=== PATIENT | male | born 1940 | race Caucasian/White ===

== ENCOUNTER → 2019-06-21 | Outpatient (CLI) | payer MEDICARE | END | disposition home or self-care (01) | LOC: CFH 09:36 | PROVIDERS: ATTEND Internal Medicine Cardiovascular Disease | DX: I08.3 Combined rheumatic disorders of mitral, aortic and tricuspid valves (principal); I27.20 Pulmonary hypertension, unspecified; I10 Essential (primary) hypertension; R60.0 Localized edema | CPT/HCPCS: 0399T; 93306 ==

== ENCOUNTER → 2020-09-25 | Outpatient (CLI) | payer MEDICARE | END | disposition home or self-care (01) | LOC: CFH 09:56 | PROVIDERS: ATTEND Internal Medicine Cardiovascular Disease | DX: I08.3 Combined rheumatic disorders of mitral, aortic and tricuspid valves (principal); I11.9 Hypertensive heart disease without heart failure | CPT/HCPCS: 93306 ==

== ENCOUNTER → 2020-11-05 | Outpatient (CLI) | payer MEDICARE ==
[~2020-11-05] MED LIST: AMLO-150 PO; CHOL10003 PO; ENAL10TA9 PO; FURO20TA3 PO; IRON18TA PO; KYOLIC GARLIC PO; LACT1CAP37 PO; LEVO50TA5 PO
[2020-11-05 11:36] LABS: ALANINE AMINOTRANSFERASE 19 U/L (12-78); ALBUMIN 3.9 g/dL (3.4-5.0); ANION GAP 5 mmol/L (5-15); CHLORIDE 106 mmol/L (98-107); CREATININE 1.61 mg/dL (0.7-1.3)
[2020-11-05 11:38] LABS: ALKALINE PHOSPHATASE 91 U/L (45-117); BILIRUBIN,TOTAL 0.7 mg/dL (0.2-1.0); TOTAL PROTEIN 7.6 g/dL (6.4-8.2)
== END | disposition home or self-care (01) ==
LOC: STAR 10:15
PROVIDERS: ATTEND Surgery
DX: Z01.812 Encounter for preprocedural laboratory examination (principal); Z20.822 Contact with and (suspected) exposure to COVID-19; I48.91 Unspecified atrial fibrillation; I25.2 Old myocardial infarction
CPT/HCPCS: 36415; 80053; 93005; U0003

== ENCOUNTER 2020-11-11 08:01 | Observation (INO) | payer MEDICARE ==
[~2020-11-11] VITALS: Ht 177.8 cm; Wt 73.5 kg
[~2020-11-11 08:01] MED LIST changes: -LACT1CAP37 PO; +LACT1CAP47 PO
[2020-11-11] MEDS ORDERED: CHLORHEXIDINE 15 ML UDC PO ONE (08:30)
[2020-11-11] MEDS ORDERED: LACTATED RINGERS 1,000 ML IV SCH (08:30)
[2020-11-11] MEDS ORDERED: PSYL3.4P5 PO (08:31)
[2020-11-11 08:34] VITALS: BP 162/81
[2020-11-11] MEDS ORDERED: FENTANYL PF 250 MCG/5ML ONE (10:19)
[2020-11-11] MEDS ORDERED: BUPIVACAINE/PF 0.5% ONE (11:02)
[2020-11-11] MEDS ORDERED: EPINEPHRINE 1 MG/ML, 1ML ONE (11:02)
[2020-11-11] MEDS ORDERED: DEXAMETHASONE 4 MG/ML, 1ML ONE (11:10)
[2020-11-11] MEDS ORDERED: PHENYLEPHRINE 10 MG/ML ONE (11:10)
[2020-11-11] MEDS ORDERED: HYDROmorphone 1 MG/ML, 1ML INJ IVPush PRN (12:30)
[2020-11-11] MEDS ORDERED: hydrALAzine 20 MG/ML, 1ML IV PRN (12:30)
[2020-11-11] MEDS ORDERED: PROMETHAZINE 25 MG/ML, 1ML IVPush PRN (12:30)
[2020-11-11] MEDS ORDERED: ALBUTEROL SULFATE 2.5 MG/3 ML NPPB PRN (12:30)
[2020-11-11] MEDS ORDERED: DIAZEPAM 5 MG/ML, 2ML IVPush PRN (12:30)
[2020-11-11] MEDS ORDERED: LABETALOL 5MG/ML, 20ML IV PRN (12:30)
[2020-11-11] MEDS ORDERED: PROPOFOL 10 MG/ML, 20ML ONE (13:55)
[2020-11-11] MEDS ORDERED: GLYCOPYRROLATE 0.2MG/1ML, 5ML ONE (13:55)
[2020-11-11] MEDS ORDERED: ROCURONIUM 10MG/ML,5ML ONE (13:55)
[2020-11-11] MEDS ORDERED: NEOSTIGMINE 1 MG/ML, 10ML ONE (13:55)
[2020-11-11] MEDS ORDERED: ONDANSETRON 2MG/ML, 2ML ONE (13:55)
[2020-11-11] MEDS ORDERED: CEFAZOLIN 1,000 MG ONE (13:55)
[2020-11-11] MEDS ORDERED: FENTANYL PF 100 MCG/2ML ONE (14:07)
[2020-11-11] MEDS: FENTANYL PF 100 MCG/2ML IV PRN ×4 (14:14→14:49)
[2020-11-11] MEDS ORDERED: LACTATED RINGERS 500 ML IVBOLUS PRN (14:30)
[2020-11-11] MEDS ORDERED: ONDANSETRON 2MG/ML, 2ML IVPush PRN (14:30)
[2020-11-11] MEDS ORDERED: MORPHINE SULFATE 4 MG/ML, 1ML IVPush PRN (14:30)
[2020-11-11] MEDS: LABETALOL 5MG/ML, 20ML IVPush SCH ×2 (14:30→22:30)
[2020-11-11] MEDS ORDERED: ACETAMINOPHEN 100 ML IVPB ONE ×2 (14:30)
[2020-11-11] MEDS ORDERED: OXYcodone 5 MG/5 ML ORAL.SOL UDC PO PRN (15:00)
[2020-11-11] MEDS ORDERED: OXYcodone 5 MG/5 ML ORAL.SOL UDC ONE (15:03)
[2020-11-11 16:05] VITALS: BP 123/75
[2020-11-11] MEDS: POTASSIUM CHLORIDE 20 MEQ in D5%-0.45% NACL 1,000 ML IV SCH (17:19)
[2020-11-11 19:32] VITALS: BP 129/71
[2020-11-11 23:43] VITALS: BP 140/84
[2020-11-12 04:00] VITALS: BP 143/85
[2020-11-12 05:33] LABS: BASOPHILS % (AUTO) 0 % (0-1); EOSINOPHILS % (AUTO) 0 % (1-7); LYMPHOCYTES % (AUTO) 3 % (22-44); MEAN CORPUSCULAR HEMOGLOBIN 30.1 pg (27.5-34.5); MEAN CORPUSCULAR HGB CONC 33.8 g/dL (33.2-36.2); MEAN PLATELET VOLUME 6.9 fL (7.4-10.4); MONOCYTES % (AUTO) 7 % (2-9); NEUTROPHILS % (AUTO) 90 % (42-75); PLATELET COUNT 238 x10^3/uL (130-400); RED BLOOD COUNT 4.73 x10^6/uL (4.38-5.82); RED CELL DISTRIBUTION WIDTH 21.5 % (9.4-14.8)
[2020-11-12] MEDS: POTASSIUM CHLORIDE 20 MEQ in D5%-0.45% NACL 1,000 ML IV SCH (05:35)
[2020-11-12 05:41] LABS: ALBUMIN 3.3 g/dL (3.4-5.0); ANION GAP 5 mmol/L (5-15); CALCIUM 8.6 mg/dL (8.5-10.1); CHLORIDE 105 mmol/L (98-107)
[2020-11-12 05:43] LABS: CREATININE 1.73 mg/dL (0.7-1.3)
[2020-11-12] MEDS: LABETALOL 5MG/ML, 20ML IVPush SCH (05:49)
[2020-11-12] MEDS ORDERED: LEVOTHYROXINE 50 MCG TABLET PO SCH (06:00)
[2020-11-12] MEDS ORDERED: ACET-1600 PO (07:11)
[2020-11-12] MEDS ORDERED: OXYC5TAB2 PO (07:11)
[2020-11-12] MEDS ORDERED: IBUP-1223 PO (07:11)
[2020-11-12 07:47] VITALS: BP 136/86
[2020-11-12] MEDS ORDERED: HEPARIN 5,000 UNITS/ML, 1ML SQ SCH (08:00)
[2020-11-12] MEDS ORDERED: CHOLECALCIFEROL 1,000 UNIT TABLET PO SCH (09:00)
[2020-11-12 10:04] VITALS: BP 143/84
== END 2020-11-12 10:38 | disposition home or self-care (01) ==
LOC: OUT 08:01 → INTOOBSV 14:08 → ORIP 14:08 → 4NE 15:58 → OUT 17:07 → DCLOUNGE 11-12 10:32
PROVIDERS: ADMIT Surgery; ATTEND Surgery
DX: K44.9 Diaphragmatic hernia without obstruction or gangrene (principal); I10 Essential (primary) hypertension; Z79.899 Other long term (current) drug therapy
CPT/HCPCS: 36415; 43282; 80048; 82040; 85025; 96360; 96361; 96372; C1781; G0378; J0131; J0171; J0690; J1100; J1644; J2370; J2405; J2704; J2710; J3010; J3480; J7120; S0020

== ENCOUNTER 2021-03-26 08:19 | Outpatient (CLI) | payer MEDICARE ==
[~2021-03-26 08:19] MED LIST changes: +ACET-1600 PO; +IBUP-1223 PO; +OXYC5TAB2 PO; +PSYL3.4P5 PO
== END 2021-03-26 23:59 | disposition home or self-care (01) ==
LOC: CFH 08:19
PROVIDERS: ATTEND Internal Medicine Cardiovascular Disease
DX: I08.8 Other rheumatic multiple valve diseases (principal); I10 Essential (primary) hypertension
CPT/HCPCS: 93306